=== PATIENT | male | born 1995 | race Caucasian/White ===

== ENCOUNTER 2023-09-16 11:47 | Emergency (ER) | payer OTHER ==
[~2023-09-16] VITALS: Ht 185.4 cm; Wt 72.6 kg
[2023-09-16 12:16] VITALS: BP 129/82; TEMP 98.2; O2SAT 100
[2023-09-16] MEDS: TDAP [DIPH/PERTUSSIS/TET] 0.5 ML VIAL IM ONE (13:00)
[2023-09-16] MEDS: BACI/NEOM/POLY B OINT PKT 1 UDPKT PACKET TP ONE (13:00)
[2023-09-16] MEDS ORDERED: TDAP [DIPH/PERTUSSIS/TET] 0.5 ML VIAL IM ONE (13:04)
[2023-09-16] MEDS ORDERED: LIDOCAINE 2% 20 ML MDV ONE (13:47)
[2023-09-16] MEDS ORDERED: IBUP-1955 PO (15:22)
== END 2023-09-16 15:43 | disposition home or self-care (01) ==
LOC: ER 13:25
DX: S01.01XA Laceration without foreign body of scalp, initial encounter (principal); X58.XXXA Exposure to other specified factors, initial encounter; Y93.89 Activity, other specified; Y92.59 Other trade areas as the place of occurrence of the external cause; Y99.8 Other external cause status
CPT/HCPCS: 12002; 90471; 90715; 99283; J3490